=== PATIENT | male | born 1960 | race Caucasian/White ===

== ENCOUNTER → 2016-07-12 | Outpatient (CLI) | payer OTHER ==
--- NOTE | 2016-07-12 13:21 | ECHOS ---
DATE OF SERVICE: 07/12/2016 AGE: 56Y SEX: M HT: 68" WT: 190 lbs. Protocol Eron: Others: Stage: Dur. of Exercise: 8 minutes *Heart Rate Blood Pressure *Rest: 86 Rest: 115/76 * *Max. Achieved: 149 Maximum BP: 143/54 85% PMHR: 139 100% PMHR: 163 *METS: 9.1 INDICATIONS: Chest pain. MEDICATIONS: Aspirin, ( ), fish oil. Reason for test: Chest pain and palpitations. Quit smoking ( ) years ago. Resting ECG shows sinus rhythm, rate of 86 beats per minute, ( ) 0.16, QRS of 0.089, normal St-T waves. Utilizing standard Eron protocol, a symptom limited treadmill test was performed. Patient exercised for total of 8 minutes, attained a peak heart rate of 149 beats per minute, approximately 91% predicted maximum heart rate without any chest pain or pressure or ST segment deviations indicative of ischemia. The baseline images shows normal thickening and contractility. Post exercise images shows improved contractility and thickening consistent with normal study. [employer] IMPRESSION: 1. Normal stress echocardiogram. 2. Patient has average level of cardiopulmonary fitness ( ) maximum ( ).
== END | disposition home or self-care (01) ==
LOC: RADNMMAIN 08:55
PROVIDERS: ATTEND Family Medicine
DX: R07.9 Chest pain, unspecified (principal)
CPT/HCPCS: 93017; 93350

== ENCOUNTER → 2018-10-12 | Outpatient (CLI) | payer OTHER ==
--- NOTE | 2018-10-12 11:45 | CT ---
EXAMINATION TYPE: CT sinus wo con DATE OF EXAM: 10/12/2018 COMPARISON: 10/28/2014 HISTORY: Facial pressure and pain. CT DLP: [address] of the paranasal sinuses was performed in the axial and coronal planes. Bone and soft tissue settings are submitted. Again noted is evidence of medial maxillary antrectomy bilaterally and ethmoidectomy. Persistent muco mel thickening of frontal sinus. Sphenoid sinuses well aerated. The osteal meatal units are patent bilaterally. The nasal septum is midline. No bony destructive changes are seen within the field of view. IMPRESSION: Again noted is evidence of medial maxillary antrectomy bilaterally and ethmoidectomy. Persistent muco mel thickening of frontal sinus.
== END ==
LOC: RADCTMAIN 11:10
PROVIDERS: ATTEND Otolaryngology
DX: J34.89 Other specified disorders of nose and nasal sinuses (principal); Z90.89 Acquired absence of other organs; Z98.890 Other specified postprocedural states
CPT/HCPCS: 70486

== ENCOUNTER → 2021-05-04 | Outpatient (CLI) | payer OTHER ==
--- NOTE | 2021-05-04 15:00 | CT ---
EXAMINATION TYPE: CT soft tissue neck w con DATE OF EXAM: 05/04/2021 COMPARISON: None HISTORY: 60-year-old male K11.21, Acute Sialoadenitis TECHNIQUE: Contiguous axial scanning of the soft tissues of the neck performed with IV Contrast, nicole ent injected with 100 mL of Isovue 300. Coronal/sagittal reconstructions performed. CT DLP: 694 mGycm Automated exposure control for dose reduction was used. FINDINGS: Visualized orbits and globes, intracranial structures, and right mastoid air cells appear clear. Ther e is small amount of trapped fluid in the inferior left mastoid air cells. Small area 5 mm soft tissue nodularity along the medial wall of the left maxillary sinus could repres ent a small polyp or mucosal retention cyst. Nasopharynx is clear. Moderate to marked hypertrophy of the bilateral lingual tonsils. Epiglottis and prevertebral soft tis sues are satisfactory. There are some inflammatory changes on the left side of the neck causing slight mass effect and effac ing the left piriform sinus. Otherwise, glottic and subglottic structures as well as the tracheal col umn appear clear. Some emphysematous change in the visualized upper lungs. Bovine configuration to the aortic arch. Thyroid gland, submandibular glands, and mild and parotid glands appear satisfactory. There is a inflamed cystic structure measuring 2.5 cm per caudal by 4.6 cm AP by 2.6 cm wide located along the anterior and medial margin of the left sternocleidomastoid muscle underlying the patient's palpable site mild surrounding fat stranding and some minimal stranding within the subcutaneous adipo se layer. There is also mass effect with a caliber narrowing of the upper left internal jugular vein . Some reactive adjacent small lymph nodes measuring up to 7 mm. Some are borderline in size measuring up to 1.3 cm. An inferior left parotid space lymph node is enlarged at 1.2 cm but shows prominent fatty hilum Adjacent reactive left submandibular space lymph node mildly enlarged at 9 mm. No osseous destructive process. IMPRESSION: 1. AN INFLAMMATORY CYSTIC CYSTIC STRUCTURE measuring 4.6 x 2.6 x 2.5 cm along the anterior and medial margin of the left sternocleidomastoid underlying the patient's palpable site. Mild surrounding infl ammation and cellulitis is suggested. Consider a superinfected second branchial cleft cyst. Metastati c cystic lymphadenopathy from an occult head and neck primary should be excluded. 2. Some associated mass effect narrowing the adjacent left internal jugular vein and slight mass effe ct on to the airway without any airway compromise. Some reactive left-sided lymph nodes measuring up to 1.3 cm. 3. Moderate to marked hypertrophy of the bilateral lingual tonsils. 4. Small amount of fluid trapped in the inferior left mastoid air cells. Correlate for any mastoid pa in to exclude mastoiditis. 5. COPD in the visualized upper lungs.
== END | disposition home or self-care (01) ==
LOC: RADCTMAIN 12:28
PROVIDERS: ATTEND Family Medicine
DX: J44.9 Chronic obstructive pulmonary disease, unspecified (principal); K11.21 Acute sialoadenitis; R59.1 Generalized enlarged lymph nodes
CPT/HCPCS: 82565; 84520; 70491; 36415; Q9967

== ENCOUNTER → 2021-06-01 | Outpatient (CLI) | payer OTHER ==
--- NOTE | 2021-06-04 12:13 | PE ---
Nuclear medicine PET/CT HISTORY: Head and neck carcinoma, subsequent Patient received 9.4 mCi F-18 FDG intravenously in delayed scanning was performed from skull base to the mid thighs. Localization and attenuation correction CT scan was performed. Small [id number] im aging obtained through the head neck. Correlation to prior neck CT 05/04/2021 Neck and chest: The abnormal lymph node seen on CT in the submandibular location is no longer seen an d there is some uptake along the sternocleidomastoid muscle distally, some associated thickening, SUV is 6.4 which may be postinflammatory, at the level of the oropharynx extending inferiorly towards th e vallecula there is abnormal soft tissue as noted on prior exam at the lingual tonsil, associated hy permetabolic uptake is present along the base of the tongue, extension towards the left, abnormal sof t tissue is again seen, SUV 13.2. There is no lung mass, no pleural or pericardial lesion. No mediastinal, axillary, or hilar. 2 super aortic branch vessels. ABDOMEN: There is no suspicious uptake. Patient is post cholecystectomy. No evident liver mass or ret roperitoneal. There is no ascites. Prostate is enlarged. Osseous structures show no suspicious uptake. IMPRESSION: There is abnormal uptake at the level of the lingual tonsils likely correlated to patient 's known head and neck cancer. Large possibly necrotic node seen on prior exam is no longer seen, cor relate for postprocedural changes along the left sternocleidomastoid muscle.
== END | disposition home or self-care (01) ==
LOC: RADPETMAIN 07:22
PROVIDERS: ATTEND Otolaryngology
DX: C01 Malignant neoplasm of base of tongue (principal)
CPT/HCPCS: 78815; A9552

== ENCOUNTER → 2021-11-09 | Outpatient (CLI) | payer OTHER ==
--- NOTE | 2021-11-10 07:33 | PE ---
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 Patient completed chemotherapy August 2021 TECHNIQUE: Following the intravenous administration of 11.74 mCi of F-18 FDG, whole body images are performed from the skull base to the midthigh. Images are reviewed on the computer in the coronal, a xial, and sagittal planes. Reconstructed rotating images are created on independent workstation and reviewed on the computer. A localization and attenuation correction CT is performed in conjunction with the PET scan. Dedicated PET/CT imaging of the head and neck are performed. Blood glucose level e quals. Blood glucose level equals 94 SCAN: Subsequent Scan FINDINGS: HEAD AND NECK: Marked improved or resolved abnormal hypermetabolic uptake involving the left orophar ynx and inferior tongue base just above the epiglottis. No residual abnormal hypermetabolic uptake at this level on current study. No new areas of abnormal hypermetabolic uptake. CHEST, MEDIASTINUM, AND HILAR REGION: No new areas of abnormal hypermetabolic uptake. ABDOMEN AND PELVIS: No new areas of abnormal hypermetabolic uptake. OSSEOUS STRUCTURES: No new areas of abnormal hypermetabolic uptake. OTHER CT: Mild to moderate underlying emphysematous change is redemonstrated. Cholecystectomy clips are seen. There is a PEG tube now identified. Gallbladder redemonstrated surgic ally absent. Enlarged prostate consistent with BPH redemonstrated. IMPRESSION: Complete positive treatment response as detailed above. No new or residual areas of abnor mal hypermetabolic uptake.
== END | disposition home or self-care (01) ==
LOC: RADPETMAIN 07:59
PROVIDERS: ATTEND Radiology Radiation Oncology
DX: C01 Malignant neoplasm of base of tongue (principal); C77.9 Secondary and unspecified malignant neoplasm of lymph node, unspecified; J44.9 Chronic obstructive pulmonary disease, unspecified; Z79.899 Other long term (current) drug therapy
CPT/HCPCS: 78815; A9552

== ENCOUNTER → 2022-07-26 | Outpatient (CLI) | payer OTHER ==
--- NOTE | 2022-07-28 09:20 | PE ---
EXAMINATION TYPE: PET CT fusion skull to thigh DATE OF EXAM: 07/26/2022 COMPARISON: Prior PET/CT November 09, 2021 and older study 2020. 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 Patient complete d chemotherapy July 2021 and radiation treatment September 2021. TECHNIQUE: Following the intravenous administration of 10.92 mCi of F-18 FDG, whole body images are performed from the skull base to the midthigh. Images are reviewed on the computer in the coronal, a xial, and sagittal planes. Reconstructed rotating images are created on independent workstation and reviewed on the computer. A localization and attenuation correction CT is performed in conjunction with the PET scan. Dedicated PET/CT imaging of the neck is performed. Blood glucose level equals 94 SCAN: Subsequent Scan FINDINGS: HEAD AND NECK: No new or recurrent areas of abnormal hypermetabolic uptake. CHEST, MEDIASTINUM, AND HILAR REGION: No new areas of abnormal hypermetabolic uptake. ABDOMEN AND PELVIS: No new areas of abnormal hypermetabolic uptake. Normal excretion redemonstrated. OSSEOUS STRUCTURES: No new areas of abnormal hypermetabolic uptake. OTHER CT: Mild edematous change in the anterior soft tissue anterior to the hyoid bone is redemonstra marcus. Mild underlying emphysematous change is redemonstrated. Cholecystectomy clips are redemonstrated. Interval removal of PEG tube noted. Enlarged prostate consi stent with BPH redemonstrated. Mild to moderate wall thickening in the bladder presumed related to ou tlet obstruction from BPH. IMPRESSION: Continued Complete positive treatment response remains present. No new areas of suspiciou s abnormal hypermetabolic uptake on current study.
== END | disposition home or self-care (01) ==
LOC: RADPETMAIN 10:10
PROVIDERS: ATTEND Internal Medicine Hematology & Oncology
DX: C01 Malignant neoplasm of base of tongue (principal)
CPT/HCPCS: 78815; A9552

== ENCOUNTER → 2023-07-01 | Outpatient (CLI) | payer OTHER ==
--- NOTE | 2023-07-08 09:32 | CT ---
EXAMINATION TYPE: CT neck chest w con CT DLP: 1228 mGycm, Automated exposure control for dose reduction was used. DATE OF EXAM: 07/01/2023 11:49 AM COMPARISON: PET/CT 07/26/2022 and before. CLINICAL INDICATION:Male, 63 years old with history of C76.0 HEAD AND NECK CANCER;, f/u throat ca TECHNIQUE: Standard enhanced CT of the neck and chest. Axial sections with coronal and sagittal refo rmats were obtained. Contrast used:100 mL of Isovue 300 with IV Contrast, (none if empty) Oral contrast used: (none if empty) FINDINGS: Brain: Visualized portions are grossly unremarkable. Orbits: Unremarkable Sinuses: Grossly unremarkable. Spaces of the neck: Stable posttreatment appearance of the left sternocleidomastoid and adjacent soft tissues. No significant residual soft tissue thickening at the base of tongue, oropharynx or nasopha rynx. No evidence of enhancing mass or abscess. Parapharyngeal fat planes are preserved. Musculoskeletal: No acute osseous pathology. Degenerative disc disease changes of the visualized spin e are present. Lymph nodes: No enlarged nodes are seen throughout the neck. Vascular structures: Patent with mild atherosclerotic plaque of the internal carotid arteries at the bifurcation. Thoracic Inlet/airway: Airway is patent. The lung apices are clear. Soft tissues/Thyroid: Unremarkable epiglottis. Thyroid and remainder of the soft tissues are unremark able. Other: none. LUNGS/ PLEURA: No sizable nodule, mass, or airspace disease. No pleural or pericardial effusion. AIRWAY: Patent and unremarkable. HEART: Size within normal limits. No significant coronary calcifications. No pericardial effusion. MEDIASTINUM: No gross evidence of adenopathy. VASCULATURE: Aorta shows minimal atherosclerotic calcification, enhances normally without evidence o f dissection flap. There is mild fusiform ectasia of the ascending segment measuring 3.5 cm. Bovine a rch again noted without significant narrowing of the branch vessels off the arch. Pulmonary trunk is normal in size at 2.4 cm. Grossly preserved enhancement of the pulmonary arteries in the limits of no n-CTA exam. MUSCULOSKELETAL: No acute osseous abnormality. Mild degenerative disc disease of the thoracic spine. SOFT TISSUES/LYMPH NODES: Slight gynecomastia suggested. No evidence for chest wall mass or axillary adenopathy. LOWER NECK: No significant findings. UPPER ABDOMEN: No significant findings. No mass of the visualized adrenals. Small, 1 cm circumscribed hypodensity in the left hepatic lobe again seen, likely cyst. IMPRESSION No definite evidence of mass or adenopathy in the neck or chest to suggest recurrent or metastatic di brannone.
== END | disposition home or self-care (01) ==
LOC: RADCTMAIN 10:54
PROVIDERS: ATTEND Internal Medicine Hematology & Oncology
DX: C76.0 Malignant neoplasm of head, face and neck (principal); G62.0 Drug-induced polyneuropathy; H93.19 Tinnitus, unspecified ear; K21.9 Gastro-esophageal reflux disease without esophagitis
CPT/HCPCS: 70491; 71260; Q9967

== ENCOUNTER → 2024-06-28 | Outpatient (CLI) | payer MEDICARE, OTHER ==
[2024-06-28 14:46] LABS: African American GFR (CKD) 54 (>60 ml/min/1.73 sqM); Blood Urea Nitrogen 14 mg/dL (9-20); Non-African American GFR(CKD) 47 (>60 ml/min/1.73 sqM)
--- NOTE | 2024-06-28 15:32 | CT ---
EXAMINATION TYPE: CT neck chest w con CT DLP: 1029 mGycm, Automated exposure control for dose reduction was used. DATE OF EXAM: 06/28/2024 3:14 PM COMPARISON: CT neck chest 07/01/2023, CT neck 05/04/2021, PET/CT 07/26/2022, 11/09/2021, 06/01/2021. CLINICAL INDICATION:Male, 64 years old with history of C76.0 HEAD AND NECK CANCER;, f/u throat ca TECHNIQUE: Standard enhanced CT of the neck and chest. Axial sections with coronal and sagittal refo rmats were obtained. Contrast used:80cc mL of Isovue 300 with IV Contrast, (none if empty) Oral contrast used: (none if empty) FINDINGS: BRAIN: Visualized portions are grossly unremarkable. ORBITS: Unremarkable SINUSES: Grossly unremarkable. SPACES OF THE NECK: Stable posttreatment appearance of the left sternocleidomastoid and adjacent soft tissues. No significant residual soft tissue thickening at the base of tongue, oropharynx or nasopha rynx. No evidence of enhancing mass or abscess. Parapharyngeal fat planes are preserved. MUSCULOSKELETAL: No acute osseous pathology. No aggressive osseous lesion. Mild multilevel degenerati ve changes of the cervical spine. LYMPH NODES: No pathologically enlarged lymph nodes identified. VASCULAR STRUCTURES: Patent with minimal atherosclerotic plaque of the internal carotid arteries at t he bifurcation. THORACIC INLET/AIRWAY: Airway is patent. The lung apices are clear. SOFT TISSUES/THYROID: Thyroid and remainder of the soft tissues are unremarkable. OTHER: none. LUNGS/ PLEURA: No pleural effusion, pneumothorax, or focal consolidation. Linear scarring and/or atel ectasis within the lingula. No suspicious pulmonary nodule or mass. AIRWAY: Patent and unremarkable. HEART: Size within normal limits.No pericardial effusion. MEDIASTINUM: No evidence of adenopathy. VASCULATURE: No aortic aneurysm. Bovine aortic arch. MUSCULOSKELETAL: Mild disc degeneration changes are present throughout the thoracolumbar spine. No ag gressive osseous lesion. No acute osseous abnormality. SOFT TISSUES/LYMPH NODES: Unremarkable. LOWER NECK: No significant findings. UPPER ABDOMEN: Stable left hepatic dome 1.1 cm cyst. IMPRESSION: No definite evidence of mass or adenopathy in the neck or chest to suggest recurrent or metastatic di sease. [facility], , 06/28/2024 3:30 PM
== END | disposition home or self-care (01) ==
LOC: RADCTMAIN 13:57
PROVIDERS: ATTEND Internal Medicine Hematology & Oncology
DX: C76.0 Malignant neoplasm of head, face and neck (principal); G62.0 Drug-induced polyneuropathy; H93.19 Tinnitus, unspecified ear; K21.9 Gastro-esophageal reflux disease without esophagitis
CPT/HCPCS: 82565; 84520; 70491; 71260; 36415; Q9967